=== PATIENT | female | born 1965 | race Caucasian/White ===

== ENCOUNTER → 2024-03-30 11:06 | Outpatient (REF) | payer BC, SELFPAY | LOC: HWWDC 11:06 | PROVIDERS: ATTENDING PHYSICIAN Physician Assistant | DX: Z12.31 Encounter for screening mammogram for malignant neoplasm of breast (principal) | CPT/HCPCS: 77063; 77067 ==

== ENCOUNTER 2025-01-11 23:38 | Observation (INO) | payer BC, SELFPAY ==
[2025-01-11] VITALS (7 sets, daily range): BP systolic 81–146; BP diastolic 66–103
--- NOTE | 2025-01-11 18:16 | ED.GENMED ---
History of Present Illness
General
Chief Complaint: Heart Rate Problem
Source: patient and family
Time Seen by Provider: 01/11/25 17:51
History of Present Illness
History of Present Illness:
This patient is a 59-year-old female who has noticed episodes where after eating her heart will start racing. Typically this just gets better when she takes Pepto or Zantac. However, yesterday she developed symptoms and took Zantac and her
symptoms resolved. However when she went to bed last night she again developed palpitations which were persistent. She actually got out of bed and got into the car with intention to go to the emergency department but the symptoms resolved and so
she never came. This was at about 3:30 AM. Her pulse was 74 when she checked it at that time. She went upstairs, and noted that her heart rate was 84. However, since then, she notes that she will get episodes of palpitations particularly when
she sits or lays down or eats or drinks. She has an associated feeling of 'indigestion', associated with frequent burping that radiates to her sternum. Patient has a history of reflux and is on a PPI as well as Zantac every night. She is
compliant with her medications. She also is on Mounjaro and is tolerating that well. She saw her doctor today regarding the symptoms and at that time her EKG was normal. She had outpatient labs and a chest x-ray performed, and was advised to
change her thyroid medication dosing. Patient presents to the ER with persistent yet intermittent palpitations.
Past History
Past History
ED Past Medical History: Other (Lupus, Raynaud's, Anjelica's, reflux)
ED Past Surgical History: Other (ENT)
Social History
Tobacco: Non-smoker
Alcohol: Occasional
Drug: None
Personal:
Living: with family
Phy Exam
Physical Exam
Physical Exam:
GENERAL: Alert , in no apparent distress, pleasant
EYE: pupils equal and reactive
NECK: Supple, no significant adenopathy.
ENT: o/p clr, mmm.
CARDIAC: Regular rate and rhythm, tachycardic.
LUNGS: Clear breath sounds bilaterally, no acute respiratory distress, no wheezes/rales/rhonchi
ABDOMEN: Soft, without focal tenderness, no r/g, no cvat
NEUROLOGICAL: Alert and oriented, no focal neuro deficits
SKIN: Warm and dry, skin intact.
MUSCULOSKELETAL: No edema, well perfused.
PSYCH: Normal and appropriate interaction.
Course
Orders/Labs/Results
Orders:
Orders
01/11/25 17:10
ECG [Electrocardiogram (*1)] Urgent
Reason for Study: Bradycardia / Tachycardia
EKG- Treatment ONCE
01/11/25 18:32
Metoprolol [Lopressor] 5 mg .ROUTE .STK-MED ONE
01/11/25 18:34
Metoprolol [Lopressor] 5 mg IV NOW STA
01/11/25 19:12
Mag Hydrox/Al Hydrox/Simeth [Maalox] 30 ml Phenobarb/Hyoscy/Atropine/Scop [] 10 ml Viscous Lidocaine 2% [Xylocaine Viscous Cup] 10 ml PO NOW
01/11/25 19:36
Mag Hydrox/Al Hydrox/Simeth [Maalox] 30 ml .ROUTE .STK-MED ONE
Phenobarb/Hyoscy/Atropine/Scop [] 10 ml .ROUTE .STK-MED ONE
Viscous Lidocaine 2% [Xylocaine Viscous Cup] 15 ml .ROUTE .STK-MED ONE
01/11/25 20:01
Metoprolol [Lopressor] 5 mg IV NOW STA
01/11/25 20:42
0.9% Sodium Chloride 1000 ml [Nss] 1,000 ml IV BOLUS
Metoprolol [Lopressor] 5 mg IV NOW STA
01/11/25 21:22
Troponin I Urgent
01/11/25 21:25
Diltiazem 125 mg/125 ml Nss [Cardizem] 125 mg in 125 ml IV NOW
Initial dose in mg/hr, then titrate:: 5
Titrate to keep:: Heart rate 80-100 bpm
Titrate by mg/hr:: 5 mg/hr
Frequency of titrations (minutes):: 15
Maximum dose in mg/hr:: 15
Diltiazem HCl [Cardizem] 20 mg IV NOW STA
01/11/25 17:54
01/11/25 17:54
Vital Signs
Initial and Last Documented VS:
Initial Vital Signs
Temp Pulse Resp BP Pulse Ox
98.0 F 71 18 146/103 99
01/11/25 17:07 01/11/25 17:07 01/11/25 17:07 01/11/25 17:07 01/11/25 17:07
Last Documented Vital Signs
Temp Pulse Resp BP Pulse Ox
98.0 F 128 29 107/82 97
01/11/25 17:07 01/11/25 20:49 01/11/25 20:30 01/11/25 20:49 01/11/25 20:30
*Pulse Oximetry
SaO2: 99
Oxygen Mode of Delivery: Room air
Update Note
Update Note:
Patient presents to the Emergency Department with ____palpitations
Number and Complexity of Problems Addressed at the Encounter
� Chronic conditions affecting care:
� Acute Exacerbation and/or Progression of Chronic Illness:
� Differential Diagnosis includes: But not limited to A-fib, a flutter, SVT, sinus tachycardia, electrolyte disorder, thyroid disorder, etc. etc.
Amount and/or Complexity of Data to be Reviewed and Analyzed
� I performed an independent evaluation of and my interpretation is:
EKG: ECG, read by me, narrow complex, regular, sinus tachycardia, no acute ischemia
CT:
Xrays:
Laboratory Studies: Patient had outpatient labs drawn today that I reviewed, TSH slightly abnormal otherwise unremarkable
Other:
� Review of other/old records reveals: Labs that were drawn today were reviewed by me, TSH noted to be low with a normal free T4, remaining labs unremarkable
� Clinical information was obtained by an independent historian: who is bedside
� Prescriptions/Medications Considered but not given:
� Further testing considered but not performed:
Risk of Complications and/or Morbidity or Mortality of Patient Management
� Social determinants of health affecting care:
� Discussion with other providers (PCP, Hospitalists, Consultants, etc):
� Escalation of care including admission/observation vs risk of discharge considered: Multiple reassessments by me, multiple ECGs performed including a prolonged rhythm strip, and discussions with cardiology Dr. Rosalie mendez.
Initially suspected SVT, administered Lopressor 5 mg. Following this, patient has received 2 more doses of Lopressor, with caution regarding her systolic blood pressure, and she continues to have prolonged episodes of elevated heart rate. Her
heart rate will spontaneously return to normal, and most recently I performed an ECG when it was normal for review, but it then becomes accelerated again. Unclear if this is SVT or another form of a narrow complex tachycardia. I will start her on
a Cardizem drip and admit for further monitoring and management. Cardiology and hospitalist aware. Patient does not have chest pain. She did have reflux-like symptoms earlier, but no longer. Troponin sent, may be elevated related to heart rate
alone overall highly doubt ischemia.
ED Attending Note
-
Portions of this chart may have been created with voice recognition software.� Occasional wrong word or��sound alike� substitutions may have occurred due to the inherent limitations of voice recognition software.
Discharge Plan
Departure
Patient Disposition: Admit
Date of Disposition: 01/11/25
Time of Disposition: 21:37
Admit to: Telemetry
Presentation/result/management discussed w/ accepting MD/DO: Hospitalist
Condition: Fair
Discharge Problem:
Tachycardia
Prescriptions:
No Action
omeprazole 40 mg Capsule,Delayed Release(Dr/Ec)
40 mg PO DAILY
ibuprofen [Advil] 200 mg Tablet
200 mg PO Q6H PRN (Reason: pain)
levothyroxine 200 mcg Tablet
175 mcg PO DAILY
furosemide 20 mg Tablet
40 mg PO DAILY
hydroxychloroquine 200 mg Tablet
400 mg PO DAILY
Vitamin D3 100 mcg (4,000 unit) Capsule
3,000 unit PO DAILY
Tylenol 8 Hour tablet
650 mg PO Q8 MDD 4,000 mg PRN (Reason: pain)
biotin 10,000 mcg Tablet,Chewable
10,000 mcg PO DAILY
Referrals:
UNKNOWN - PT DOES,NOT KNOW [Unknown Provider]
Interventions
Interventions:
*Risk Screen - Suicide Last Done: 01/11/25 17:00
*General Assessment Last Done: 01/11/25 17:07
[facility] Fall Risk Assessment Tool Last Done: 01/11/25 16:59
ED- Cardiac Assessment Last Done: 01/11/25 19:06
ED- Pulmonary Assessment Last Done: 01/11/25 19:06
Discharge Date and Time
Print Language: CITIZEN OF [place]
--- NOTE | 2025-01-11 18:24 | EDRN ---
Unable to obtain IV access. unsuccessful attemps x2. TT'd VAT RN. Mary VAT RN in room w/ pt.
[2025-01-11] MEDS: LOPRESSOR 5 MG IV ×3 (18:34→20:49)
[2025-01-11] MEDS: MAALOX 10 PO (19:38)
[2025-01-11] MEDS: NSS 1000 IV (20:48)
--- NOTE | 2025-01-11 21:40 | HPS.HSE ---
Addendum entered and electronically signed by Dameon Escalera DO 01/11/25 23:19:
Patient seen and examined independently. Agree with findings and plan as set forth by JEAN-PAUL Neri.
Patient is a 59y F with PMH significant for hypertension, DM-II and hypothyroidism who presents to ED complaining of palpitations. Patient states that she has had intermittent palpitations for the past 6 months or so. Symptoms are typically
brief and almost exclusively triggered by food / drink or lying on her L side. Last PM she had recurrent symptoms that seemed more severe. She was seen by her PCP today and had labs done and additional studies ordered. When she returned home she
ate a small pretzel and her symptoms started again. She presented to the ED for further evaluation. Upon arrival she was in normal sinus rhythm. She drank a glass of water and started to have SVT in the 130s.
Patient received multiple doses of metoprolol and was placed on Cardizem gtt.
Currently she is in sinus in the 70s with occasional PACs on Cardizem gtt at 5mcg.
Ass:
SVT
Benign Hypertension
Hypothyroidism
DM-II, Diet-Controlled
GERD
RA / Lupus
Morbid Obesity
Plan:
Admit for further evaluation and treatment.
Continue diltiazem for now and titrate as needed.
Monitor for recurrent SVT / symptoms.
Cardiology evaluation for additional recommendations.
Check Echo.
TSH was suppressed and patient already advised to decrease T4 from 200mcg daily to 175mcg daily.
Follow glucose and cover with SSI. A1C done this AM and is pending.
Original Note:
Family Physician
-
Family Physician: Samara Tinajero
Chief Complaint
-
palpitations
History of Present Illness
Patient is a 59-year-old female with past medical history significant for hypertension, hyperlipidemia, hypothyroidism, type 2 diabetes, GERD, Rheumatoid arthritis and lupus who presented to [facility] ED for evaluation of palpitations. Patient reports
that she has had intermittent palpitations over the past 6 months, she believed that they were associated with food intake and possibly eating too much. She reports going to see primary care today because of more consistent intermittent palpitations
over past 24-hours. She now states that she is unsure if the exacerbations have only been triggered by food, but does still feel it has contributed. Patient states that palpitations seem to be associated with epigastric burning which she states is
what she experiences with her indigestion. She has taken a Zantac or Pepto and got relief from both reflux and palpitations. Her primary care team sent her for out patient testing today EKG, labs and CXR. Labs and chest x-ray were unremarkable. She
presented to ED for persistent palpitations. Patient denies any fever, chills, cough, shortness of breath, chest pain, nausea, vomiting, constipation, diarrhea or urinary symptoms.
Medical History
Past Medical History
Past Medical History: Reports Other
Additional Past Medical History:
hypertension
hyperlipidemia
hypothyroidism
type 2 diabetes
GERD
lupus
Rheumatoid arthritis
migraines
Past Surgical History: Reports Other
Additional Past Surgical History:
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
[place] teeth removed
Social History
Tobacco: Non-smoker
Family History
Family History: Other (Mother: CAD, dementia Father: Creutzfeldt-Yrn disease Brother: Lung Cancer )
Allergies / Home Medications
Allergies reflects when Allergies were last updated in [facility].
Home Medications with original date entered in [facility]
Allergy/Medication List:
Allergies
Allergy/AdvReac Type Severity Reaction Status Date / Time
Penicillins Allergy Nausea / Verified 01/11/25 17:06
Vomiting
sulfamethoxazole (From Allergy Itching Verified 01/11/25 17:06
Bactrim)
trimethoprim (From Bactrim) Allergy Itching Verified 01/11/25 17:06
decongestants Allergy Unknown Uncoded 01/11/25 17:06
Home Medications
Tylenol 8 Hour 650 mg PO Q8 PRN pain 12/14/22
cholecalciferol (vitamin D3) 100 mcg (4,000 unit) capsule 3,000 unit PO DAILY 12/14/22
furosemide 20 mg tablet 40 mg PO DAILY 12/14/22
hydroxychloroquine 200 mg tablet 400 mg PO DAILY 12/14/22
ibuprofen 200 mg tablet (Advil) 200 mg PO Q6H PRN pain 12/14/22
levothyroxine 200 mcg tablet 175 mcg PO DAILY 12/14/22
omeprazole 40 mg capsule,delayed release 40 mg PO DAILY 12/14/22
biotin 10,000 mcg chewable tablet 10,000 mcg PO DAILY 01/11/25
Review of Systems
-
History Source: Patient
Constitutional: Denies Fever or Chills
EENT: Denies Sore Throat
Respiratory: Denies Cough, Hemoptysis or Trouble Breathing
Cardiac: Reports Palpitations; Denies Chest Pain, Diaphoresis or Syncope
Abdomen/GI: Denies Abdominal Pain, Nausea, Vomiting or Diarrhea
: Denies Dysuria, Frequency or Urgency
Musculoskeletal: Denies Joint Pain
Skin: Denies Rash
Neurological: Denies Dizzy, Headache, Weakness or Numbness
Endocrine: Denies Polyuria
Physical Exam
Vital Signs
Vital Signs
Temp Pulse Resp BP Pulse Ox
98.0 F 128 29 107/82 97
01/11/25 17:07 01/11/25 20:49 01/11/25 20:30 01/11/25 20:49 01/11/25 20:30
Physical Exam
General: Well Developed, Well Nourished, No Apparent Distress, Comfortable, Conversant and Morbidly Obese
HEENT: NormoCephalic, Moist mucous membranes, PERRLA, Nose Appears Normal and Ears Appear Normal
Respiratory: Clear, Non Labored Respirations and Decreased Breath Sounds; No Wheezes, Rales or Rhonchi
Cardiac: Regular Rhythm and Peripheral Edema (mild ); No Murmur
GI: Soft, Non Tender, Non Distended and Normal Bowel Sounds
Musculoskeletal: No Clubbing and No Cyanosis
Skin: Warm and IV/Catheter Site
Neuro: Awake and AO x 3
Psych: Calm and Intact Judgment/Insight
Laboratory Results
-
01/11/25 17:54
01/11/25 17:54
Laboratory Results
Total Bilirubin Cancelled 01/11/25 17:54
AST Cancelled 01/11/25 17:54
ALT Cancelled 01/11/25 17:54
Alkaline Phosphatase Cancelled 01/11/25 17:54
Data Reviewed
-
Diagnostic Radiology: Report Reviewed by me (CXR: 1. Clear lungs. 2. No significant change compared to prior study.)
Medical Tests (Nuc Med, Echo, EKG etc): Report Reviewed by me (EKG: UNDETERMINED RHYTHM LOW VOLTAGE QRS CANNOT RULE OUT ANTERIOR INFARCT , AGE UNDETERMINED)
Lab Data: Labs Reviewed by me
Impression/Plan
-
IMPRESSION/PLAN:
#palpitations
Labs unremarkable
CXR: 1. Clear lungs.
2. No significant change compared to prior study.
EKG: UNDETERMINED RHYTHM
LOW VOLTAGE QRS
CANNOT RULE OUT ANTERIOR INFARCT , AGE UNDETERMINED
- Admit to IVU
- Consult Cardiology
- IV diltiazem per cardiology
- ECHO
#hypertension
- continue furosemide
#hyperlipidemia
controlled with diet
#hypothyroidism
TSH 0.10
patient reports 200mcg this morning and primary requested reduction to 175mcg starting tomorrow
- continue levothyroxine
#type 2 diabetes
controlled with diet
#GERD
- continue omeprazole
#lupus
#Rheumatoid arthritis
- continue hydroxychloroquine
#morbid obesity
- continue tirzepatide out patient
- encourage diet and exercise that promotes weight loss
#migraines
Code status: full code
DVT Prophylaxis: Lovenox sq
[2025-01-11] MEDS: CARDIZEM 125 IV (21:46)
[2025-01-11] MEDS: CARDIZEM 20 MG IV (21:47)
[2025-01-11 22:19] LABS: Troponin I < 0.012 ng/ml
[2025-01-12] VITALS (8 sets, daily range): BP systolic 108–134; BP diastolic 48–80; BMI 52.3
--- NOTE | 2025-01-12 03:05 | PTCARENOTE ---
Received pt into room 2245 from ED RN @ approx 0210. Assessment and admission questions completed as documented. pt Oriented to room and call sung. Tele placed on pt, SR w/ HR 60's-70's. pt denies any CP, SOB, or palpitations at this time. Cardizem
gtt infusing per protocol. Encouraged pt to call RN w/ any questions/concerns. Call sung within reach.
[2025-01-12] MEDS: SYNTHROID 176 MCG PO (05:06)
[2025-01-12] MEDS: PROTONIX 40 MG PO (08:16)
[2025-01-12] MEDS: PLAQUENIL 400 MG PO (08:16)
[2025-01-12] MEDS: LASIX 40 MG PO (08:16)
--- NOTE | 2025-01-12 09:00 | PTCARENOTE ---
Assumed care of the pt @ 0700. Pt is AAOx3 SR on the monitor Cardizem gtt was @ 10 mg/Hr titrated to 5mg for a goal 80-100 bpm. POC discussed with pt. Call sung within reach. Pt is independent in the room.
--- NOTE | 2025-01-12 09:48 | CM ---
Reviewed chart. Met with Mrs. Escalante to review discharge plans. She states prior to admission she resides with her spouse in a second floor condo with twelve steps to enter. She states prior to admission she was independent with ambulation and
adls. She states she does not have any DME in the home. She states she has a prescription plan and uses [facility] pharmacy. The discharge plan is to return home with her spouse when medically stable.
--- NOTE | 2025-01-12 14:10 | CON.CAR ---
Consultation
Consultation Request
Date/Time Consultation Requested: 01/12/2025
Reason for Consultation: Tachycardia and palpitations
Medical History
-
Chief Complaint: Tachycardia and palpitation
History of Present Illness:
59-year-old woman with history of hypertension, hyperlipidemia, hypothyroidism, type 2 diabetes, GERD, Rheumatoid arthritis, lupus, morbid obesity, GERD and GI upset who has been having frequent episodes of tachycardia for the past few months. The
tachycardia episodes are intermittent. Patient is on Mounjaro and has lost about 45 to 50 pounds.
Patient started having palpitations for the past few months. She tried to come to the ER or and see her physician when she was in tachycardia. Every time she went to her physician her tachycardia had subsided and her heart rate was in normal sinus
rhythm. On the day of presentation, patient presented with sustained tachycardia which was not going away. She remained in tachycardia for over an hour and was seen in the ER. At the time of arrival to the ER she broke again into normal sinus
rhythm. However, she reports that she is able to start her tachycardia by taking a big gulp. She was able to start her tachycardia on the monitor in the ER.
Tachycardia in the ER was fast around 130s to 140s bpm.
The EKG done in the ER was reviewed that shows atrial tachycardia. Patient was admitted and was started on diltiazem drip. Patient's tachycardia has been going in and out of this rhythm since then. She has brief episodes that last few seconds to few
minutes of tachycardia before it breaks into normal sinus rhythm. The initiation and break were reviewed in detail on telemetry. It is clear that the tachycardia is likely SVT with atrial tachycardia in origin.
Patient reported that she has been tested for sleep apnea in the past and was not noted to have MALACHI. Her is known to have obstructive sleep apnea and use CPAP.
Past Medical History
Past Medical History: GERD, HTN, Hypercholesterolemia, Hypothyroidism, NIDDM and Other (SLE, rheumatoid arthritis, migraine)
Social History
Tobacco: Non-Smoker
Family History
Family History: Reviewed & Not Pertinent and Other (Father with mad cow disease, brother has lung cancer and mom has coronary artery disease)
Allergies / Home Medications
Allergy/AdvReac Type Severity Reaction Status Date / Time
Penicillins Allergy Nausea / Verified 01/11/25 17:06
Vomiting
sulfamethoxazole (From Allergy Itching Verified 01/11/25 17:06
Bactrim)
trimethoprim (From Bactrim) Allergy Itching Verified 01/11/25 17:06
decongestants Allergy Unknown Uncoded 01/11/25 17:06
�Medication �Instructions �Recorded �Confirmed �Type
Tylenol 8 Hour 650 mg PO Q8 PRN pain 12/14/22 01/11/25 History
cholecalciferol (vitamin D3) 100 3,000 unit PO DAILY Supplement 12/14/22 01/11/25 History
mcg (4,000 unit) capsule
furosemide 20 mg tablet 40 mg PO DAILY Fluid 12/14/22 01/11/25 History
Retention/Swelling
hydroxychloroquine 200 mg tablet 400 mg PO DAILY Lupus/arthritis 12/14/22 01/11/25 History
ibuprofen 200 mg tablet (Advil) 200 mg PO Q6H PRN pain 12/14/22 01/11/25 History
levothyroxine 200 mcg tablet 175 mcg PO DAILY Thyroid 12/14/22 01/11/25 History
omeprazole 40 mg capsule,delayed 40 mg PO DAILY Gastrointestinal 12/14/22 01/11/25 History
release Issue
biotin 10,000 mcg chewable tablet 10,000 mcg PO DAILY Supplement 01/11/25 01/11/25 History
tirzepatide 10 mg/0.5 mL 10 mg SC TU Diabetes 01/11/25 01/11/25 History
subcutaneous pen injector
(Kendy)
Review of Systems
-
All other systems: Negative unless noted
Physical Exam
Vital Signs
Temp Pulse Resp BP Pulse Ox
97.7 F 70 18 109/48 100
01/12/25 11:57 01/12/25 11:57 01/12/25 11:57 01/12/25 07:08 01/12/25 11:57
Lab Results
01/11/25 17:54
01/11/25 17:54
Troponin I < 0.012 ng/ml 01/11/25 21:35
Physical Exam
General: Well Developed, Well Nourished and No Apparent Distress
HEENT: Normocephalic and Anicteric
Respiratory: Clear and Non Labored Respirations
Cardiac: S1/S2 and Regular Rhythm; Negative Murmur
GI: Soft, Non Tender and Normal Bowel Sounds
Musculoskeletal: No Clubbing, No Cyanosis and No Edema
Skin: Warm and Dry
Neuro: Awake, Alert, Oriented, AO x 3 and No Motor Deficits
Impression / Plan
-
59-year-old woman with a history of HTN, HPL, hypothyroidism, DM, GERD, SLE, rheumatoid arthritis, morbid obesity who presented with paroxysmal supraventricular tachycardia.
Supraventricular tachycardia
- Likely atrial tachycardia (AT). Differentials include atypical AVNRT versus AVRT.
- Patient is AT appears to be coming from darn[place]/right atrial in origin. However, possibility of left atrial origin is also entertained.
- Patient definitely has risk factors for atrial tachycardia either left or right atrial origin.
- Given the SVT is more likely to be atrial tachycardia, diltiazem is less effective as it is more targeted towards AV node. Will discontinue diltiazem today and start her on metoprolol 50 mg once a day.
- If metoprolol 50 is ineffective, can be increased to twice daily dose.
- Patient telemetry shows frequent paroxysms of short runs of SVT.
- Echo pending today
- No need for chronic anticoagulation at this time
- Given patient's hydroxychloroquine, will not use any QT prolonging agents. In case patient's beta-blockers are ineffective, she may be a candidate for class Ic agents.
- Just in case she needs it in future for class Ic agents, we need to rule out any ischemic heart disease.
- Plan for stress test as an outpatient.
- Monitor on telemetry with the start of metoprolol today.
- Likely discharge home tomorrow if SVT is in control.
- Follow-up with EP for further management
Data Reviewed
-
EKG: Tracing Personally Visualized and interpreted and Report Reviewed by me
Labs: Labs Reviewed by me, Discussed with Physician and Discussed with Nurse
Old Records: Reviewed
[2025-01-12] MEDS: TOPROL XL 50 MG PO (14:38)
--- NOTE | 2025-01-12 15:48 | W.PN.HOSP.TC ---
Today's Communication/Plan
-
Assessment / Plan
Assessment / Plan
NAD
Scleral Anicteric
MMM
No JVD
CTABL
RRR, S1/S2
Soft, NT, ND, BS+
Warm, Dry
AAOx3
Calm
SVT
EP suspect Atach
Stop dilt
Started on metop 50 daily, with ability to titrate tup if needed
2d echo
tele monitor
levothyroxine dose decreased
HTN
Continue antihypertensives
HLD
Diet controlled
Type 2 DM
Diet controlled
GERD
Continue PPI
Lupus/RA
Continue hydroxychloroquine
Anticipated Discharge: 24 - 48 hours
Subjective/Interval History
-
Date of Service: January 12, 2025
seen and exmamined. no new complainta. no acute ovenrihgt events
Objective Data
-
Vital Signs:
Vital Signs
Temp Pulse Resp BP Pulse Ox
97.6 F 75 18 108/72 100
01/12/25 15:41 01/12/25 15:41 01/12/25 15:41 01/12/25 12:00 01/12/25 15:41
I&O
01/11/25 01/12/25 01/13/25
06:59 06:59 06:59
Intake Total 240 / 240
Balance 240 / 240
[2025-01-12] MEDS: LOVENOX 40 MG SC (18:49)
--- NOTE | 2025-01-12 21:47 | PTCARENOTE ---
Received pt at change of shift resting in bed. SR on tele, HR 60's-70's. pt denies ant CP or SOB at this time. Updated pt on plan of care. Encouraged pt to call RN w/ any questions/concerns. Call sung within reach.
[2025-01-12] MEDS: TYLENOL 650 MG PO (22:36)
[2025-01-13] MEDS: SYNTHROID 176 MCG PO (04:05)
[2025-01-13 04:08] VITALS: BP 131/68
[2025-01-13 07:01] VITALS: BP 133/70
[2025-01-13] MEDS: PLAQUENIL 400 MG PO (08:20)
[2025-01-13] MEDS: LASIX 40 MG PO (08:21)
[2025-01-13] MEDS: TOPROL XL 50 MG PO (08:21)
[2025-01-13] MEDS: PROTONIX 40 MG PO (08:21)
--- NOTE | 2025-01-13 09:15 | CM ---
Reviewed chart. Met with Mrs. Singer to review discharge plans. She states she is feeling well and maybe able to go home soon. Prior to admission she resides with her spouse in a second floor condo with twelve steps to enter. Prior to admission
she was independent with ambulation and adls. She does not have any DME in the home. She has a prescription plan and uses [facility] pharmacy. The discharge plan is to return home with her spouse when medically stable.
--- NOTE | 2025-01-13 10:00 | PTCARENOTE ---
Pt was discharged to home with family. PIV and ekg monitor tech removed prior to leaving. Discharge instructions explained and pt verbalized understand. Pt declined wheelchair escort.
--- NOTE | 2025-01-13 10:33 | W.PN.CD ---
Translation Services
-
Comment: None needed, [place] primary language
Today's Communication / Plan
-
OK for home on current BB dose
F/u Dr. Andrea in 2-3 months
Impression / Plan
-
59-year-old woman with a history of HTN, HPL, hypothyroidism, DM, GERD, SLE, rheumatoid arthritis, morbid obesity who presented with paroxysmal supraventricular tachycardia.
Supraventricular tachycardia
- Agree likely AT and less likely AVNRT or AVRT
- Much less on current metoprolol ER 50 mg a day
- I find the ATs frequently respond very well to the nondihydropyridine Ca++ channel blockers diltiazem and verapamil
- If BB or Ca++ enriqueta ineffective then Ablation or adding Type Ic AAD is appropriate. For ablation a much lower BMI will decrease complication rates!! => pt informed
HTN
DM
Mixed hyperlipidemia
Morbid obesity, BMI 51 => she is working on BMI control and is now on Mounjoro
GERD
SLE
RA
Echo normal
Physical Exam
Vital Signs/Labs
Vital Signs
Temp Pulse Resp BP Pulse Ox
97.8 F 73 18 133/70 96
01/13/25 07:08 01/13/25 07:08 01/13/25 07:08 01/13/25 07:01 01/13/25 07:08
01/12/25 01/13/25 01/14/25
06:59 06:59 06:59
Actual Weight 147 kg
01/11/25 17:54
01/11/25 17:54
TSH Cancelled 01/11/25 17:54
LAB Results
01/11/25
21:35
Troponin I < 0.012
Physical Exam
Constitutional: No acute distress
EENT: Anicteric
Cardiovascular: Rhythm & rate is regular
Respiratory: Respiratory effort normal
GI: Soft and Distention absent
Neuro/Psych: AO x 3
Data Reviewed
-
Date of Service: January 13, 2025
--- NOTE | 2025-01-13 13:18 | W.DCSUMMARY ---
Discharge Summary
Discharge Data
Date of Admission: 01/11/25
Date of Discharge: 01/13/25
-
Pending Results: No
Hospital Course
59-year-old female with past medical history significant for hypertension, hyperlipidemia, hypothyroidism, type 2 diabetes, GERD, Rheumatoid arthritis and lupus
Presented with a sensation of palpitations found to be in SVT. Started in diltiazem drip by the ER. He was evaluated by electrophysiology was back in sinus rhythm without any additional SVT events. Diltiazem drip was discontinued and started on
metoprolol. 2D echocardiogram was obtained demonstrating an EF of 55 to 60% without regional wall motion abnormalities.
2d echo
SUMMARY
1. Normal biventricular size and systolic function without regional wall motion abnormality. LVEF 55-60%.
2. No significant valvular disease.
3. No prior study available for comparison.
CXR
IMPRESSION:
1. Clear lungs.
2. No significant change compared to prior study.
Seen and examined the day of discharge which was 02/09/2025. No new complaints. No acute overnight events.
NAD
Scleral Anicteric
MMM
No JVD
CTABL
RRR, S1/S2
Soft, NT, ND, BS+
Warm, Dry
AAOx3
Calm
More than 30 minutes spent in discharge including
Final examination of the patient
Summarizing hospital stay
Instructions for continuing care to all relevant caregivers
Preparation of discharge records, prescriptions, and referral forms
Total time spent (in minutes): 33mins
Discharge Plan
-
Patient Disposition: Home (Routine Discharge)
Discharge Diagnosis/Procedures: SVT
Condition: Good
Diet: As tolerated
Activity: As tolerated
Activity Restrictions/Additional Instructions:
Presented with a sensation of palpitations found to be in SVT. Started in diltiazem drip by the ER. He was evaluated by electrophysiology was back in sinus rhythm without any additional SVT events. Diltiazem drip was discontinued and started on
metoprolol. 2D echocardiogram was obtained demonstrating an EF of 55 to 60% without regional wall motion abnormalities.
2d echo
SUMMARY
1. Normal biventricular size and systolic function without regional wall motion abnormality. LVEF 55-60%.
2. No significant valvular disease.
3. No prior study available for comparison.
CXR
IMPRESSION:
1. Clear lungs.
2. No significant change compared to prior study.
Referrals:
Samara Tinajero PA-C [Family Provider, Internal Medicine]
Ceasar Andrea MD [Active, Cardiology] - in two to three weeks
Prescriptions:
New
metoprolol succinate 50 mg Tablet Extended Release 24 Hr
50 mg PO DAILY Qty: 60 0RF
Continued
omeprazole 40 mg Capsule,Delayed Release(Dr/Ec)
40 mg PO DAILY
ibuprofen [Advil] 200 mg Tablet
200 mg PO Q6H PRN (Reason: pain)
levothyroxine 200 mcg Tablet
175 mcg PO DAILY
furosemide 20 mg Tablet
40 mg PO DAILY
hydroxychloroquine 200 mg Tablet
400 mg PO DAILY
cholecalciferol (vitamin D3) 100 mcg (4,000 unit) Capsule
3,000 unit PO DAILY
Tylenol 8 Hour tablet
650 mg PO Q8 MDD 4,000 mg PRN (Reason: pain)
biotin 10,000 mcg Tablet,Chewable
10,000 mcg PO DAILY
Mounjaro 10 mg/0.5 mL pen injector
10 mg SC TU
Discharge Orders:
Discharge Patient (As Directed); Ordered 01/13/25
Ordered By: Pako Trevizo
Care Plan Goals
Care Plan Goals:
Problem: Readiness for enhanced knowledge related to diagnosis and treatment plan
Goal: Understand your diagnosis and treatment plan needs, including medications if applicable.
Instructions: Know your diagnosis, underlying causes and treatment plan options, including medications if applicable. Consult with your health care team to learn about your diagnosis and treatment plan, including medications if applicable.
Discharge Date and Time
Discharge Date/Time: 01/13/25 10:13
Print Language: [id number]
== END 2025-01-13 10:13 | disposition home or self-care (01) ==
LOC: IVU 23:38
PROVIDERS: ADMITTING PHYSICIAN Hospitalist; ATTENDING PHYSICIAN Hospitalist; EMERGENCY PHYSICIAN Emergency Medicine; FAMILY PHYSICIAN Physician Assistant; OTHER PHYSICIAN Internal Medicine Cardiovascular Disease
DX: I47.19 Other supraventricular tachycardia (principal); R00.2 Palpitations; K30 Functional dyspepsia; E06.3 Autoimmune thyroiditis; I73.00 Raynaud's syndrome without gangrene; M32.9 Systemic lupus erythematosus, unspecified; R00.1 Bradycardia, unspecified; I10 Essential (primary) hypertension; E11.9 Type 2 diabetes mellitus without complications; K21.9 Gastro-esophageal reflux disease without esophagitis; M06.9 Rheumatoid arthritis, unspecified; I49.1 Atrial premature depolarization; E78.2 Mixed hyperlipidemia; G43.909 Migraine, unspecified, not intractable, without status migrainosus; E66.01 Morbid (severe) obesity due to excess calories; Z68.43 Body mass index [BMI] 50.0-59.9, adult; Z80.1 Family history of malignant neoplasm of trachea, bronchus and lung; Z82.49 Family history of ischemic heart disease and other diseases of the circulatory system; Z88.0 Allergy status to penicillin; Z88.2 Allergy status to sulfonamides; Z88.1 Allergy status to other antibiotic agents; Z79.890 Hormone replacement therapy; Z71.82 Exercise counseling; Z79.85 Long-term (current) use of injectable non-insulin antidiabetic drugs
CPT/HCPCS: 36415; 71046; 80053; 82306; 83036; 83690; 84439; 84443; 84484; 85025; 93005; 93306; 96374; 96375; 96376; 99285